=== PATIENT | male | born 1990 | race Caucasian/White ===

== ENCOUNTER 2017-04-29 19:11 | Inpatient (IN) | payer MEDICAID, OTHER ==
[~2017-04-29] VITALS: Ht 185.4 cm; Wt 122.7 kg
[~2017-04-29 19:11] MED LIST: DIPH25 PO; DIVA500T69 PO; QUET100T PO; QUET200T PO
[2017-04-29 20:32] LABS: BASOPHILS % (AUTO) 0.2 % (0.0-2.0); EOSINOPHILS % (AUTO) 0.3 % (1.0-6.0); HEMATOCRIT 47.6 % (41-53); HEMOGLOBIN 16.3 g/dL (13.5-17.5); LYMPHOCYTES # (AUTO) 2.8 K/uL (1.0-4.8); LYMPHOCYTES % (AUTO) 27.2 % (22.0-44.0); MEAN CORPUSCULAR HEMOGLOBIN 33.8 pg (26.0-34.0); MEAN CORPUSCULAR HGB CONC 34.4 G/dL (31.0-37.0); MEAN CORPUSCULAR VOLUME 98 fL (80-100); MONOCYTES # (AUTO) 0.8 K/uL (0.1-1.0); NEUTROPHILS # (AUTO) 6.6 K/uL (1.8-7.7); NEUTROPHILS % (AUTO) 64.3 % (40.0-70.0); PLATELET COUNT (AUTO) 154 K/uL (150-450); RED BLOOD CELL COUNT(AUTO) 4.84 MIL/uL (4.50-5.90); RED CELL DISTRIBUTION WIDTH 12.9 % (11.5-14.5); WHITE BLOOD COUNT (AUTO) 10.2 K/uL (4.5-11.0)
[2017-04-29 20:42] LABS: ANION GAP 10 mmol/L (8-16); CALCIUM, TOTAL 9.5 mg/dL (8.8-10.5); CARBON DIOXIDE 26 mmol/L (22-29); CHLORIDE 103 mmol/L (98-107); CREATININE 1.09 mg/dL (0.60-1.30); GLOMERULAR FILTR. RATE CALC > 60 mL/min (>60); POTASSIUM 3.9 mmol/L (3.5-5.1); SODIUM SERUM 139 mmol/L (136-145); UREA NITROGEN, BLOOD 18 mg/dL (7-18)
[2017-04-29 20:52] LABS: ALANINE AMINOTRANSFERASE 31 U/L (12-78); ALBUMIN 4.3 g/dL (3.4-5.0); ASPARTATE AMINOTRANSFERASE 16 U/L (15-37); BILIRUBIN,TOTAL 0.3 mg/dL (0.1-1.0); TOTAL PROTEIN, SERUM 8.3 g/dL (6.4-8.2)
[2017-04-29 21:04] LABS: VALPROIC ACID 91 mcg/mL (50-100)
[2017-04-29] MEDS ORDERED: IBUPROFEN 600 MG TABLET PO ONE (22:15)
[2017-04-29] MEDS ORDERED: ZOLPIDEM TARTRATE 10 MG TABLET PO PRN (23:15)
[2017-04-29] MEDS ORDERED: HALOPERIDOL 5 MG TABLET PO PRN (23:15)
[2017-04-29] MEDS ORDERED: LORazepam 2 MG TABLET PO PRN (23:15)
[2017-04-29] MEDS ORDERED: DiphenhydrAMINE HCL 25 MG CAPSULE PO ONE (23:45)
[2017-04-29] MEDS ORDERED: LORazepam 2 MG TABLET PO ONE (23:45)
[2017-04-29] MEDS ORDERED: HALOPERIDOL 5 MG TABLET PO ONE (23:45)
[2017-04-30 00:39] VITALS: BP 113/74
[2017-04-30] MEDS ORDERED: INFLUENZA VIRUS VACCINE QVS 2017-18 (3YR+)/PF 60 MCG/0.5 ML SYRINGE IM ONE (01:00)
[2017-04-30 08:29] VITALS: BP 115/60
[2017-04-30] MEDS ORDERED: LOPERAMIDE HCL 2 MG CAPSULE PO PRN (11:30)
[2017-04-30] MEDS ORDERED: MAG HYDROX/AL HYDROX/SIMETH ES 30 ML SUSPENSION UDCUP PO PRN (11:30)
[2017-04-30] MEDS ORDERED: MAGNESIUM HYDROXIDE SUSPENSION 30 ML UDCUP PO PRN (11:30)
[2017-04-30] MEDS ORDERED: PROMETHAZINE HCL 25 MG TABLET PO PRN (11:30)
[2017-04-30] MEDS ORDERED: ACETAMINOPHEN 325 MG TABLET PO PRN ×2 (11:30→16:30)
[2017-04-30] MEDS ORDERED: GuaiFENesin/D-METHORPHAN [SUGAR-FREE] 200-20MG/10 ML SYRUP UDCUP PO PRN (11:30)
[2017-04-30] MEDS ORDERED: HydrOXYzine PAMOATE 50 MG CAPSULE PO PRN (11:30)
[2017-04-30] MEDS ORDERED: TUBERCULIN, PURIFIED PROTEIN DERIVATIVE 5 TU/0.1 ML SYG ID ONE (11:30)
[2017-04-30] MEDS ORDERED: QUEtiapine FUMARATE 100 MG TABLET PO PRN (11:30)
[2017-04-30 16:24] VITALS: BP 124/70
[2017-04-30] MEDS ORDERED: IBUPROFEN 400 MG TABLET PO PRN (16:30)
[2017-04-30] MEDS: THIAMINE HCL 100 MG TABLET PO SCH (16:30)
[2017-04-30] MEDS: QUEtiapine FUMARATE 200 MG TABLET PO SCH (20:31)
[2017-04-30] MEDS: DIVALPROEX SODIUM 500 MG ER TABLET PO SCH (20:31)
[2017-04-30] MEDS ORDERED: QUEtiapine FUMARATE 200 MG TABLET PO SCH (21:00)
[2017-05-01 08:23] VITALS: BP 117/72
[2017-05-01] MEDS: THIAMINE HCL 100 MG TABLET PO SCH ×2 (08:23→16:08)
[2017-05-01] MEDS: FOLIC ACID 1 MG TABLET PO SCH (08:23)
[2017-05-01] MEDS: MULTIVITAMINS WITH MINERALS, THERAPEUTIC TABLET PO SCH (08:23)
[2017-05-01 08:55] LABS: HEMOGLOBIN A1C 5.6 % (4.5-6.2)
[2017-05-01 09:01] LABS: CHOL/HDL RATIO 5.7 (4.2-7.3); THYROID STIMULATING HORMONE 3.09 uIU/mL (0.36-3.74)
[2017-05-01 16:17] VITALS: BP 121/71
[2017-05-01] MEDS: QUEtiapine FUMARATE 200 MG TABLET PO SCH (20:15)
[2017-05-01] MEDS: DIVALPROEX SODIUM 500 MG ER TABLET PO SCH (20:15)
[2017-05-02 00:51] VITALS: BP 115/74
[2017-05-02 08:17] VITALS: BP 133/87
[2017-05-02] MEDS: FOLIC ACID 1 MG TABLET PO SCH (08:40)
[2017-05-02] MEDS: MULTIVITAMINS WITH MINERALS, THERAPEUTIC TABLET PO SCH (08:40)
[2017-05-02] MEDS: THIAMINE HCL 100 MG TABLET PO SCH ×2 (08:40→16:25)
[2017-05-02 16:13] VITALS: BP 121/69
[2017-05-02] MEDS: DIVALPROEX SODIUM 500 MG ER TABLET PO SCH (20:02)
[2017-05-02] MEDS: QUEtiapine FUMARATE 200 MG TABLET PO SCH (20:02)
[2017-05-03 03:43] VITALS: BP 118/69
[2017-05-03 08:13] VITALS: BP 106/67
[2017-05-03] MEDS: FOLIC ACID 1 MG TABLET PO SCH (08:34)
[2017-05-03] MEDS: THIAMINE HCL 100 MG TABLET PO SCH (08:34)
[2017-05-03] MEDS: MULTIVITAMINS WITH MINERALS, THERAPEUTIC TABLET PO SCH (08:34)
[2017-05-03] MEDS ORDERED: QUET200T PO (12:04)
== END 2017-05-03 13:25 | disposition home or self-care (01) | DRG 750 ==
LOC: EMS 19:12 → B2S 23:33
PROVIDERS: ADMIT Psychiatry & Neurology Psychiatry; ATTEND Psychiatry & Neurology Psychiatry
DX: F25.0 Schizoaffective disorder, bipolar type (principal); R45.851 Suicidal ideations; R00.1 Bradycardia, unspecified; F70 Mild intellectual disabilities; G47.00 Insomnia, unspecified; E66.9 Obesity, unspecified; F90.9 Attention-deficit hyperactivity disorder, unspecified type; Z79.899 Other long term (current) drug therapy; Z91.19 Patient's noncompliance with other medical treatment and regimen; Z68.35 Body mass index [BMI] 35.0-35.9, adult; Z81.8 Family history of other mental and behavioral disorders; Z81.0 Family history of intellectual disabilities
CPT/HCPCS: 83036; 84443; 99285; G0480

== ENCOUNTER 2017-05-07 15:48 | Inpatient (IN) | payer MEDICAID, OTHER ==
[~2017-05-07] VITALS: Ht 185.4 cm; Wt 123.2 kg
[~2017-05-07 15:48] MED LIST changes: -DIPH25 PO; -QUET100T PO
[2017-05-07] MEDS ORDERED: DiphenhydrAMINE HCL 50 MG/ML VIAL ONE (17:34)
[2017-05-07 17:45] LABS: BASOPHILS % (AUTO) 0.3 % (0.0-2.0); EOSINOPHILS % (AUTO) 0.1 % (1.0-6.0); HEMATOCRIT 46.7 % (41-53); HEMOGLOBIN 16.2 g/dL (13.5-17.5); LYMPHOCYTES # (AUTO) 3.1 K/uL (1.0-4.8); LYMPHOCYTES % (AUTO) 23.2 % (22.0-44.0); MEAN CORPUSCULAR HEMOGLOBIN 33.8 pg (26.0-34.0); MEAN CORPUSCULAR HGB CONC 34.6 G/dL (31.0-37.0); MEAN CORPUSCULAR VOLUME 97 fL (80-100); MONOCYTES # (AUTO) 1.3 K/uL (0.1-1.0); MONOCYTES % (AUTO) 9.7 % (2.0-9.0); NEUTROPHILS # (AUTO) 8.9 K/uL (1.8-7.7); NEUTROPHILS % (AUTO) 66.7 % (40.0-70.0); PLATELET COUNT (AUTO) 196 K/uL (150-450); RED CELL DISTRIBUTION WIDTH 12.9 % (11.5-14.5); WHITE BLOOD COUNT (AUTO) 13.4 K/uL (4.5-11.0)
[2017-05-07] MEDS ORDERED: DiphenhydrAMINE HCL 50 MG/ML VIAL IM ONE (17:45)
[2017-05-07] MEDS ORDERED: HALOPERIDOL LACTATE 5 MG/ML VIAL IM ONE (17:45)
[2017-05-07] MEDS ORDERED: LORazepam 2 MG/ML VIAL IM ONE (17:45)
[2017-05-07 17:54] LABS: ANION GAP 16 mmol/L (8-16); CALCIUM, TOTAL 9.1 mg/dL (8.8-10.5); CARBON DIOXIDE 22 mmol/L (22-29); CHLORIDE 101 mmol/L (98-107); CREATININE 1.27 mg/dL (0.60-1.30); GLOMERULAR FILTR. RATE CALC > 60 mL/min (>60); POTASSIUM 3.4 mmol/L (3.5-5.1); SODIUM SERUM 139 mmol/L (136-145); UREA NITROGEN, BLOOD 12 mg/dL (7-18)
[2017-05-07 18:00] LABS: ALANINE AMINOTRANSFERASE 48 U/L (12-78); ALBUMIN 4.3 g/dL (3.4-5.0); ASPARTATE AMINOTRANSFERASE 24 U/L (15-37); BILIRUBIN,TOTAL 0.3 mg/dL (0.1-1.0); TOTAL PROTEIN, SERUM 8.1 g/dL (6.4-8.2)
[2017-05-07] MEDS ORDERED: POTASSIUM CHLORIDE 20 MEQ ER TABLET PO ONE (21:45)
[2017-05-07] MEDS ORDERED: LORazepam 2 MG TABLET PO PRN (23:30)
[2017-05-07] MEDS ORDERED: ZOLPIDEM TARTRATE 10 MG TABLET PO PRN (23:30)
[2017-05-07] MEDS ORDERED: OLANZapine 5 MG RAPDIS TABLET PO PRN (23:30)
[2017-05-08 00:44] VITALS: BP 137/86
[2017-05-08 07:43] LABS: CHOL/HDL RATIO 5.9 (4.2-7.3); POTASSIUM 4.1 mmol/L (3.5-5.1)
[2017-05-08 09:27] VITALS: BP 108/66
[2017-05-08] MEDS ORDERED: LOPERAMIDE HCL 2 MG CAPSULE PO PRN (12:15)
[2017-05-08] MEDS ORDERED: OLANZapine 5 MG RAPDIS TABLET PO PRN (12:15)
[2017-05-08] MEDS ORDERED: HydrOXYzine PAMOATE 50 MG CAPSULE PO PRN (12:15)
[2017-05-08] MEDS ORDERED: ACETAMINOPHEN 325 MG TABLET PO PRN (12:15)
[2017-05-08] MEDS ORDERED: PROMETHAZINE HCL 25 MG TABLET PO PRN (12:15)
[2017-05-08] MEDS ORDERED: MAGNESIUM HYDROXIDE SUSPENSION 30 ML UDCUP PO PRN (12:15)
[2017-05-08] MEDS ORDERED: GuaiFENesin/D-METHORPHAN [SUGAR-FREE] 200-20MG/10 ML SYRUP UDCUP PO PRN (12:15)
[2017-05-08] MEDS ORDERED: MAG HYDROX/AL HYDROX/SIMETH ES 30 ML SUSPENSION UDCUP PO PRN (12:15)
[2017-05-08] MEDS ORDERED: OLANZapine 5 MG RAPDIS TABLET PO SCH (13:00)
[2017-05-08] MEDS: TRIHEXYPHENIDYL HCL 2 MG TABLET PO SCH ×2 (14:12→16:29)
[2017-05-08] MEDS: DIVALPROEX SODIUM 500 MG ER TABLET PO SCH ×2 (14:12→16:28)
[2017-05-08 14:16] VITALS: BP 140/84
[2017-05-08] MEDS: GuanFACINE HCL 1 MG TABLET PO SCH ×2 (14:18→16:28)
[2017-05-08] MEDS: PROPRANOLOL HCL 10 MG TABLET PO SCH ×2 (14:19→16:28)
[2017-05-08] MEDS: THIAMINE HCL 100 MG TABLET PO SCH (16:29)
[2017-05-08 16:37] VITALS: BP 125/75
[2017-05-08] MEDS ORDERED: QUEtiapine FUMARATE 300 MG TABLET PO SCH (21:00)
[2017-05-09 08:45] VITALS: BP 159/90
[2017-05-09] MEDS: GuanFACINE HCL 1 MG TABLET PO SCH ×3 (09:16→18:15)
[2017-05-09] MEDS: TRIHEXYPHENIDYL HCL 2 MG TABLET PO SCH ×3 (09:16→17:35)
[2017-05-09] MEDS: THIAMINE HCL 100 MG TABLET PO SCH ×2 (09:17→17:35)
[2017-05-09] MEDS: DIVALPROEX SODIUM 500 MG ER TABLET PO SCH ×3 (09:17→17:35)
[2017-05-09] MEDS: FOLIC ACID 1 MG TABLET PO SCH (09:17)
[2017-05-09] MEDS: MULTIVITAMINS WITH MINERALS, THERAPEUTIC TABLET PO SCH (09:17)
[2017-05-09] MEDS: PROPRANOLOL HCL 10 MG TABLET PO SCH ×3 (09:17→17:35)
[2017-05-09 16:52] VITALS: BP 110/72
[2017-05-09] MEDS ORDERED: TRIH2TAB3 PO (17:33)
[2017-05-09] MEDS ORDERED: DIVA500T52 PO (17:33)
[2017-05-09] MEDS ORDERED: GUAN1TAB2 PO (17:33)
[2017-05-09] MEDS ORDERED: PROP10TA72 PO (17:33)
[2017-05-09] MEDS ORDERED: QUET200T29 PO (17:33)
[2017-05-09] MEDS ORDERED: QUEtiapine FUMARATE 200 MG TABLET PO SCH (21:00)
[2017-05-10] MEDS: DIVALPROEX SODIUM 500 MG ER TABLET PO SCH ×4 (09:13→17:00)
[2017-05-10] MEDS: TRIHEXYPHENIDYL HCL 2 MG TABLET PO SCH ×4 (09:13→17:00)
[2017-05-10] MEDS: PROPRANOLOL HCL 10 MG TABLET PO SCH ×4 (09:13→17:00)
[2017-05-10] MEDS: FOLIC ACID 1 MG TABLET PO SCH (09:13)
[2017-05-10] MEDS: GuanFACINE HCL 1 MG TABLET PO SCH ×4 (09:13→17:00)
[2017-05-10] MEDS: MULTIVITAMINS WITH MINERALS, THERAPEUTIC TABLET PO SCH (09:15)
[2017-05-10] MEDS: THIAMINE HCL 100 MG TABLET PO SCH ×3 (09:15→17:00)
[2017-05-10 09:44] VITALS: BP 148/92
== END 2017-05-10 15:45 | disposition home or self-care (01) | DRG 750 ==
LOC: EMS 15:50 → 3EI 22:30
PROVIDERS: ADMIT Psychiatry & Neurology Psychiatry; ATTEND Psychiatry & Neurology Psychiatry
DX: F25.0 Schizoaffective disorder, bipolar type (principal); Z78.1 Physical restraint status; F32.9 Major depressive disorder, single episode, unspecified; F90.9 Attention-deficit hyperactivity disorder, unspecified type; E66.9 Obesity, unspecified; Z68.35 Body mass index [BMI] 35.0-35.9, adult; D72.829 Elevated white blood cell count, unspecified; E87.6 Hypokalemia; E78.5 Hyperlipidemia, unspecified; Z91.19 Patient's noncompliance with other medical treatment and regimen; Z59.9 Problem related to housing and economic circumstances, unspecified
CPT/HCPCS: 84132; 87081; 96372; 99291; G0480; J1200; J1630; J2060

== ENCOUNTER 2017-06-05 21:21 | Inpatient (IN) | payer MEDICAID, OTHER ==
[~2017-06-05] VITALS: Ht 185.4 cm; Wt 124.1 kg
[~2017-06-05 21:21] MED LIST changes: +DIVA500T52 PO; -DIVA500T69 PO; +GUAN1TAB2 PO; +PROP10TA72 PO; -QUET200T PO; +QUET200T29 PO; +TRIH2TAB3 PO
[2017-06-05 22:16] LABS: BASOPHILS % (AUTO) 0.3 % (0.0-2.0); EOSINOPHILS % (AUTO) 0.9 % (1.0-6.0); HEMATOCRIT 46.5 % (41-53); HEMOGLOBIN 16.1 g/dL (13.5-17.5); LYMPHOCYTES # (AUTO) 3.1 K/uL (1.0-4.8); LYMPHOCYTES % (AUTO) 31.9 % (22.0-44.0); MEAN CORPUSCULAR HEMOGLOBIN 33.8 pg (26.0-34.0); MEAN CORPUSCULAR HGB CONC 34.6 G/dL (31.0-37.0); MEAN CORPUSCULAR VOLUME 98 fL (80-100); MONOCYTES # (AUTO) 0.8 K/uL (0.1-1.0); MONOCYTES % (AUTO) 8.6 % (2.0-9.0); NEUTROPHILS # (AUTO) 5.7 K/uL (1.8-7.7); NEUTROPHILS % (AUTO) 58.3 % (40.0-70.0); PLATELET COUNT (AUTO) 157 K/uL (150-450); RED BLOOD CELL COUNT(AUTO) 4.76 MIL/uL (4.50-5.90)
[2017-06-05 22:32] LABS: ANION GAP 5 mmol/L (8-16); CALCIUM, TOTAL 9.2 mg/dL (8.8-10.5); CARBON DIOXIDE 31 mmol/L (22-29); CHLORIDE 104 mmol/L (98-107); CREATININE 1.17 mg/dL (0.60-1.30); GLOMERULAR FILTR. RATE CALC > 60 mL/min (>60); GLUCOSE,RANDOM 96 mg/dL (70-110); POTASSIUM 3.9 mmol/L (3.5-5.1); SODIUM SERUM 140 mmol/L (136-145); UREA NITROGEN, BLOOD 16 mg/dL (7-18)
[2017-06-05 22:38] LABS: ALANINE AMINOTRANSFERASE 45 U/L (12-78); ALBUMIN 4.4 g/dL (3.4-5.0); ALKALINE PHOSPHATASE 84 U/L (46-116); ASPARTATE AMINOTRANSFERASE 29 U/L (15-37); BILIRUBIN,TOTAL 0.4 mg/dL (0.1-1.0); TOTAL PROTEIN, SERUM 8.4 g/dL (6.4-8.2)
[2017-06-05] MEDS ORDERED: ZOLPIDEM TARTRATE 10 MG TABLET PO PRN (22:45)
[2017-06-05] MEDS ORDERED: HALOPERIDOL 5 MG TABLET PO PRN (22:45)
[2017-06-05] MEDS ORDERED: LORazepam 2 MG TABLET PO PRN (22:45)
[2017-06-05 22:56] LABS: AMPHET/METH SCREEN,URINE NEGATIVE (NEGATIVE); BARBITURATE SCREEN, URINE NEGATIVE (NEGATIVE); BENZODIAZEPINES SCREEN,URINE NEGATIVE (NEGATIVE); CANNABINOID SCREEN,URINE NEGATIVE (NEGATIVE); COCAINE SCREEN,URINE NEGATIVE (NEGATIVE); METHADONE SCREEN, URINE NEGATIVE (NEGATIVE); OPIATE SCREEN,URINE NEGATIVE (NEGATIVE); PHENCYCLIDINE SCREEN,URINE NEGATIVE (NEGATIVE)
[2017-06-06 01:11] VITALS: BP 133/78
[2017-06-06 02:53] LABS: APPEARANCE,URINE TURBID (CLEAR); BILIRUBIN,URINE NEGATIVE (NEGATIVE); GLUCOSE, URINE (UA) NEGATIVE (NEGATIVE); KETONES,URINE TRACE mg/dL (NEGATIVE); LEUKOCYTE ESTERASE ,URINE NEGATIVE (NEGATIVE); NITRATE,URINE NEGATIVE (NEGATIVE); OCCULT BLOOD,URINE NEGATIVE (NEGATIVE); PROTEIN,URINE TRACE (NEGATIVE); UROBILINOGEN,URINE 0.2 mg/dL (<=1.0)
[2017-06-06 16:46] VITALS: BP 125/78
[2017-06-06] MEDS: OLANZapine 5 MG RAPDIS TABLET PO SCH (21:34)
[2017-06-07 09:11] VITALS: BP 132/93
[2017-06-07] MEDS: DIVALPROEX SODIUM 500 MG DR TABLET PO SCH ×2 (10:54→16:51)
[2017-06-07] MEDS: LITHIUM CARBONATE 300 MG CAPSULE PO SCH ×2 (10:54→16:51)
[2017-06-07 16:58] VITALS: BP 132/60
[2017-06-07] MEDS: OLANZapine 5 MG RAPDIS TABLET PO SCH (20:58)
[2017-06-08] MEDS: DIVALPROEX SODIUM 500 MG DR TABLET PO SCH ×2 (09:44→16:18)
[2017-06-08] MEDS: LITHIUM CARBONATE 300 MG CAPSULE PO SCH ×2 (09:44→16:18)
[2017-06-08 10:31] VITALS: BP 101/52
[2017-06-08] MEDS: OLANZapine 5 MG RAPDIS TABLET PO SCH (21:00)
[2017-06-09 09:22] VITALS: BP 148/94
[2017-06-09] MEDS: DIVALPROEX SODIUM 500 MG DR TABLET PO SCH ×2 (09:45→17:15)
[2017-06-09] MEDS: LITHIUM CARBONATE 300 MG CAPSULE PO SCH ×2 (09:45→17:15)
[2017-06-09 20:03] VITALS: BP 145/98
[2017-06-09] MEDS: OLANZapine 5 MG RAPDIS TABLET PO SCH (21:00)
[2017-06-10 02:25] VITALS: BP 109/84
[2017-06-10 08:12] LABS: LITHIUM 0.22 mmol/L (0.60-1.20)
[2017-06-10] MEDS: LITHIUM CARBONATE 300 MG CAPSULE PO SCH (09:00)
[2017-06-10] MEDS: DIVALPROEX SODIUM 500 MG DR TABLET PO SCH (09:00)
[2017-06-10 09:05] VITALS: BP 108/57
[2017-06-10] MEDS ORDERED: DIVA500T35 PO (10:59)
[2017-06-10] MEDS ORDERED: LITH300C3 PO (10:59)
[2017-06-10] MEDS ORDERED: OLAN5TAB40 PO (11:00)
== END 2017-06-10 14:10 | disposition home or self-care (01) | DRG 750 ==
LOC: EMS 21:24 → 3EI 23:30
PROVIDERS: ADMIT Psychiatry & Neurology Psychiatry; ATTEND Psychiatry & Neurology Psychiatry
DX: F20.0 Paranoid schizophrenia (principal); E78.5 Hyperlipidemia, unspecified; F90.9 Attention-deficit hyperactivity disorder, unspecified type; F12.90 Cannabis use, unspecified, uncomplicated; Z79.899 Other long term (current) drug therapy
CPT/HCPCS: 87081; 99285; G0480

== ENCOUNTER 2017-11-14 21:46 | Emergency (ER) | payer MEDICAID, OTHER ==
[~2017-11-14] VITALS: Ht 185.4 cm; Wt 127.0 kg
[~2017-11-14 21:46] MED LIST changes: +DIVA500T35 PO; -DIVA500T52 PO; -GUAN1TAB2 PO; +LITH300C3 PO; +OLAN5TAB40 PO; -PROP10TA72 PO; -QUET200T29 PO; -TRIH2TAB3 PO
[2017-11-14 22:23] LABS: BASOPHILS % (AUTO) 0.5 % (0.0-2.0); HEMATOCRIT 46.8 % (41-53); HEMOGLOBIN 16.2 g/dL (13.5-17.5); LYMPHOCYTES # (AUTO) 2.8 K/uL (1.0-4.8); MEAN CORPUSCULAR HEMOGLOBIN 33.3 pg (26.0-34.0); MEAN CORPUSCULAR HGB CONC 34.7 G/dL (31.0-37.0); MEAN CORPUSCULAR VOLUME 96 fL (80-100); MONOCYTES # (AUTO) 0.8 K/uL (0.1-1.0); MONOCYTES % (AUTO) 8.8 % (2.0-9.0); NEUTROPHILS # (AUTO) 5.6 K/uL (1.8-7.7); NEUTROPHILS % (AUTO) 59.7 % (40.0-70.0); PLATELET COUNT (AUTO) 166 K/uL (150-450); RED BLOOD CELL COUNT(AUTO) 4.87 MIL/uL (4.50-5.90); RED CELL DISTRIBUTION WIDTH 13.1 % (11.5-14.5)
[2017-11-14 22:43] LABS: ANION GAP 4 mmol/L (8-16); CALCIUM, TOTAL 9.1 mg/dL (8.8-10.5); CARBON DIOXIDE 32 mmol/L (22-29); CHLORIDE 105 mmol/L (98-107); CREATININE 1.13 mg/dL (0.60-1.30); GLOMERULAR FILTR. RATE CALC > 60 mL/min (>60); GLUCOSE,RANDOM 93 mg/dL (70-110); POTASSIUM 3.7 mmol/L (3.5-5.1); SODIUM SERUM 141 mmol/L (136-145); UREA NITROGEN, BLOOD 10 mg/dL (7-18)
[2017-11-14 22:49] LABS: ALANINE AMINOTRANSFERASE 24 U/L (12-78); ALBUMIN 4.5 g/dL (3.4-5.0); ALKALINE PHOSPHATASE 64 U/L (46-116); ASPARTATE AMINOTRANSFERASE 14 U/L (15-37); BILIRUBIN,TOTAL 0.5 mg/dL (0.1-1.0); TOTAL PROTEIN, SERUM 8.2 g/dL (6.4-8.2); VALPROIC ACID 95 mcg/mL (50-100)
[2017-11-15] MEDS ORDERED: HALOPERIDOL LACTATE 5 MG/ML VIAL IM ONE (03:00)
[2017-11-15] MEDS ORDERED: DiphenhydrAMINE HCL 50 MG/ML VIAL IM ONE (03:00)
[2017-11-15] MEDS ORDERED: LORazepam 2 MG/ML VIAL IM ONE (03:00)
[2017-11-15 04:00] VITALS: BP 124/80
== END 2017-11-15 05:49 | disposition home or self-care (01) ==
LOC: EMS 21:47
DX: F25.9 Schizoaffective disorder, unspecified (principal); F31.9 Bipolar disorder, unspecified; F12.10 Cannabis abuse, uncomplicated; Z79.899 Other long term (current) drug therapy
CPT/HCPCS: 36415; 80053; 80164; 80178; 85025; 96372; 99285; G0480; J1200; J1630; J2060

== ENCOUNTER 2023-07-05 22:36 | Inpatient (IN) | payer MEDICAID, OTHER ==
[~2023-07-05] VITALS: Ht 182.9 cm; Wt 136.5 kg
[~2023-07-05 22:36] MED LIST changes: +DIVA-112 PO; -DIVA500T35 PO; -OLAN5TAB40 PO; +OLAN5TAB94 PO
[2023-07-05 23:44] LABS: BASOPHILS % (AUTO) 0.5 % (0.0-2.0); EOSINOPHILS % (AUTO) 2.1 % (1.0-6.0); HEMATOCRIT 43.9 % (41-53); HEMOGLOBIN 14.8 g/dL (13.5-17.5); LYMPHOCYTES # (AUTO) 3.5 K/uL (1.0-4.8); LYMPHOCYTES % (AUTO) 40.5 % (22.0-44.0); MEAN CORPUSCULAR HEMOGLOBIN 32.4 pg (26.0-34.0); MEAN CORPUSCULAR HGB CONC 33.7 G/dL (31.0-37.0); MEAN CORPUSCULAR VOLUME 96 fL (80-100); MONOCYTES # (AUTO) 0.6 K/uL (0.1-1.0); MONOCYTES % (AUTO) 7.4 % (2.0-9.0); NEUTROPHILS # (AUTO) 4.3 K/uL (1.8-7.7); NEUTROPHILS % (AUTO) 49.5 % (40.0-70.0); PLATELET COUNT (AUTO) 197 K/uL (150-450); RED BLOOD CELL COUNT(AUTO) 4.57 MIL/uL (4.50-5.90); RED CELL DISTRIBUTION WIDTH 13.6 % (11.5-14.5); WHITE BLOOD COUNT (AUTO) 8.7 K/uL (4.5-11.0)
[2023-07-05 23:50] LABS: COVID AG,FIA SOURCE NASAL SWAB
[2023-07-05 23:52] LABS: SARS-COV2 (COVID) ANTIGEN,FIA Negative (Negative)
[2023-07-05 23:58] LABS: ANION GAP 10 mmol/L (8-16); CALCIUM, TOTAL 9.5 mg/dL (8.8-10.5); CARBON DIOXIDE 26 mmol/L (22-29); CHLORIDE 102 mmol/L (98-107); CREATININE 0.95 mg/dL (0.60-1.30); GLOMERULAR FILTR. RATE CALC > 60 mL/min (>60); GLUCOSE,RANDOM 140 mg/dL (70-110); POTASSIUM 4.1 mmol/L (3.5-5.1); SODIUM SERUM 138 mmol/L (136-145); UREA NITROGEN, BLOOD 9 mg/dL (7-18)
[2023-07-06 00:03] LABS: ALANINE AMINOTRANSFERASE 37 U/L (12-78); ALBUMIN 4.4 g/dL (3.4-5.0); ALKALINE PHOSPHATASE 74 U/L (46-116); ASPARTATE AMINOTRANSFERASE 15 U/L (15-37); BILIRUBIN,TOTAL 0.4 mg/dL (0.1-1.0); TOTAL PROTEIN, SERUM 7.8 g/dL (6.4-8.2)
[2023-07-06 00:04] LABS: LITHIUM 0.72 mmol/L (0.60-1.20)
[2023-07-06 00:05] LABS: ALCOHOL, BLOOD (SERUM) < 3 mg/dL (0-10)
[2023-07-06 03:04] VITALS: BP 140/91; PULSE 84; RESP 18; TEMP 98; O2SAT 99
[2023-07-06] MEDS ORDERED: ONDANSETRON HCL 4 MG TABLET PO PRN (07:15)
[2023-07-06] MEDS ORDERED: GuaiFENesin/D-METHORPHAN [SUGAR-FREE] 200-20MG/10 ML SYRUP UDCUP PO PRN (07:15)
[2023-07-06] MEDS ORDERED: LOPERAMIDE HCL 2 MG CAPSULE PO PRN (07:15)
[2023-07-06] MEDS ORDERED: MAGNESIUM HYDROXIDE SUSPENSION 30 ML UDCUP PO PRN (07:15)
[2023-07-06] MEDS ORDERED: IBUPROFEN 400 MG TABLET PO PRN (07:15)
[2023-07-06] MEDS ORDERED: DOCUSATE SODIUM 100 MG CAPSULE PO PRN (07:15)
[2023-07-06] MEDS ORDERED: CloNIDine HCL 0.1 MG TABLET PO PRN (07:15)
[2023-07-06] MEDS ORDERED: ALBUTEROL SULFATE HFA 90 MCG/PUFF 8 GM INHALER IH PRN (07:15)
[2023-07-06] MEDS ORDERED: MAG HYDROX/ALUMINUM HYD/SIMETH ES 30 ML SUSPENSION UDCUP PO PRN (07:15)
[2023-07-06] MEDS ORDERED: NICOTINE 14 MG/24 HOUR PATCH TD PRN (07:15)
[2023-07-06] MEDS ORDERED: PETROLATUM,WHITE 28 GM JELLY TP PRN (07:15)
[2023-07-06] MEDS ORDERED: ACETAMINOPHEN 325 MG TABLET PO PRN (07:15)
[2023-07-06] MEDS: LITHIUM CARBONATE 300 MG CAPSULE PO SCH (10:23)
[2023-07-06] MEDS: DIVALPROEX SODIUM 500 MG DR TABLET PO SCH (10:23)
[2023-07-06 13:00] VITALS: BP 124/74; PULSE 101; RESP 20; TEMP 96.9; O2SAT 95
[2023-07-06 20:10] VITALS: BP 109/62; PULSE 100; RESP 18; TEMP 98.4; O2SAT 99
[2023-07-06] MEDS: OLANZapine 5 MG RAPDIS TABLET PO SCH (20:37)
[2023-07-07 09:44] LABS: HEMOGLOBIN A1C 6.3 % (3.8-5.6)
[2023-07-07 09:47] LABS: THYROID STIMULATING HORMONE 5.8 uIU/mL (0.36-3.74)
[2023-07-07 12:19] VITALS: BP 126/75; PULSE 82; RESP 16; TEMP 96.9; O2SAT 96
[2023-07-07] MEDS: LORazepam 2 MG TABLET PO PRN (16:16)
[2023-07-07] MEDS: ZOLPIDEM TARTRATE 10 MG TABLET PO PRN (20:10)
[2023-07-07 20:52] VITALS: BP 140/90; PULSE 96; RESP 18; TEMP 97.6; O2SAT 99
[2023-07-08 11:16] VITALS: BP 123/89; PULSE 98; RESP 18; TEMP 96.5; O2SAT 96
[2023-07-08 21:29] VITALS: BP 132/76; PULSE 92; RESP 19; TEMP 97.6; O2SAT 98
[2023-07-09 10:16] VITALS: BP 130/86; PULSE 88; RESP 17; TEMP 98; O2SAT 98
[2023-07-10] VITALS: BP 133/86; PULSE 89; RESP 18; TEMP 97.8
[2023-07-10 08:05] VITALS: BP 147/83; PULSE 83; RESP 18; TEMP 98; O2SAT 97
[2023-07-10 08:06] VITALS: BP 147/83; PULSE 83; RESP 18; TEMP 98
[2023-07-10 21:18] VITALS: BP 150/84; PULSE 100; RESP 16; TEMP 96.4; O2SAT 96
[2023-07-11 13:28] VITALS: BP 144/83; PULSE 96; RESP 16; TEMP 98.5; O2SAT 91
[2023-07-12 00:16] VITALS: BP 130/80; PULSE 98; RESP 16; TEMP 98; O2SAT 100
[2023-07-12] MEDS: LEVOTHYROXINE SODIUM 50 MCG TABLET PO SCH (06:42)
[2023-07-12] MEDS: MetFORMIN HCL 500 MG TABLET PO SCH (06:42)
[2023-07-12 08:12] LABS: APPEARANCE,URINE CLEAR (CLEAR); BILIRUBIN,URINE NEGATIVE (NEGATIVE); COLOR,URINE LIGHT YELLOW (YELLOW); GLUCOSE, URINE (UA) >=1000 mg/dL (NEGATIVE); KETONES,URINE NEGATIVE (NEGATIVE); LEUKOCYTE ESTERASE ,URINE NEGATIVE (NEGATIVE); NITRATE,URINE NEGATIVE (NEGATIVE); OCCULT BLOOD,URINE NEGATIVE (NEGATIVE); PROTEIN,URINE NEGATIVE (NEGATIVE); SPECIFIC GRAVITIY, URINE 1.012 (1.003-1.030); UROBILINOGEN,URINE <=1.0 mg/dL (<=1.0)
[2023-07-12] MEDS: PROPRANOLOL HCL 10 MG TABLET PO SCH (08:14)
[2023-07-12] MEDS: HALOPERIDOL 5 MG TABLET PO PRN (08:14)
[2023-07-12 08:29] LABS: ALCOHOL, URINE DRUG SCREEN NEGATIVE (NEGATIVE); AMPHET/METH SCREEN,URINE NEGATIVE (NEGATIVE); BARBITURATE SCREEN, URINE NEGATIVE (NEGATIVE); BENZODIAZEPINES SCREEN,URINE NEGATIVE (NEGATIVE); CANNABINOID SCREEN,URINE NEGATIVE (NEGATIVE); COCAINE SCREEN,URINE NEGATIVE (NEGATIVE); METHADONE SCREEN, URINE NEGATIVE (NEGATIVE); OPIATE SCREEN,URINE NEGATIVE (NEGATIVE); PHENCYCLIDINE SCREEN,URINE NEGATIVE (NEGATIVE)
[2023-07-12 08:50] LABS: BACTERIA,URINE None Seen /HPF (None Seen); RBC,URINE None Seen /HPF (0-2); SQUAMOUS EPITHELIAL CELL,UR None Seen /LPF (None Seen); WBC,URINE None Seen /HPF (0-5)
[2023-07-12 09:30] VITALS: BP 152/74; PULSE 97; RESP 18; TEMP 96.9; O2SAT 96
[2023-07-12] MEDS ORDERED: OLAN5TAB94 PO (13:00)
[2023-07-12] MEDS ORDERED: DIVA-112 PO (13:00)
[2023-07-12] MEDS ORDERED: LITH300C3 PO (13:00)
[2023-07-12] MEDS ORDERED: ATORVASTATIN CALCIUM 20 MG TABLET PO SCH (21:00)
== END 2023-07-12 18:00 | disposition home or self-care (01) | DRG 750 ==
LOC: EMS 22:45 → UNDOADMIN 23:21 → 5N 23:21 → B3A 07-06 01:57
PROVIDERS: ADMIT Psychiatry & Neurology Psychiatry; ATTEND Psychiatry & Neurology Psychiatry
PROC: GZHZZZZ Group Psychotherapy (ICD-10-PCS; principal; 2023-07-06)
DX: F25.0 Schizoaffective disorder, bipolar type (principal); G40.909 Epilepsy, unspecified, not intractable, without status epilepticus; E07.9 Disorder of thyroid, unspecified; E66.9 Obesity, unspecified; F12.90 Cannabis use, unspecified, uncomplicated; F90.9 Attention-deficit hyperactivity disorder, unspecified type; E78.5 Hyperlipidemia, unspecified; Z20.822 Contact with and (suspected) exposure to COVID-19; R73.9 Hyperglycemia, unspecified; Z79.899 Other long term (current) drug therapy; Z59.00 Homelessness unspecified; Z68.41 Body mass index [BMI] 40.0-44.9, adult
CPT/HCPCS: 80053; 80164; 80178; 80307; 81001; 83036; 84443; 85025; 99285; G0480